=== PATIENT | male | born 1985 | race Caucasian/White ===

== ENCOUNTER 2019-05-24 11:56 | Emergency (ER) | payer OTHER ==
[2019-05-24] MEDS ORDERED: THIAMINE 100 MG/ML 2 ML VIAL IM STA (13:21)
[2019-05-24] MEDS ORDERED: LORazepam 2 MG/ML INJ IV PRN ×2 (13:21)
[2019-05-24 13:34] LABS: Amphetamine Screen,Urine Not Detected (NotDetected); Barbiturate Screen,Urine Not Detected (NotDetected); Benzodiazepines Screen,Urine Not Detected (NotDetected); Cocaine Screen,Urine Not Detected (NotDetected); Methadone Screen, Urine Not Detected (NotDetected); Opiate Screen,Urine Not Detected (NotDetected); Oxycodone Screen, Urine Not Detected (NotDetected); Phencyclidine Screen,Urine Not Detected (NotDetected); Tricyclic Antidepressant,Urine Not Detected (NotDetected); Urn Cannabinoid Scrn Not Detected (NotDetected)
[2019-05-24] MEDS: LORazepam 2 MG/ML INJ IV PRN ×2 (14:56→18:04)
[2019-05-24] MEDS ORDERED: NICOTINE 21MG/24HR PATCH TRANSDERM STA (15:02)
--- NOTE | 2019-05-24 15:47 | ED ---
General Adult HPI <Santiago Mistry - Last Filed: 05/24/19 21:58> - General Source: patient Mode of arrival: ambulatory Limitations: no limitations <Jamil Jeff - Last Filed: 05/25/19 19:53> - General Chief complaint: Recheck/Abnormal Lab/Rx Stated complaint: ETOH withdrawals Time Seen by Provider: 05/24/19 12:14 - History of Present Illness Initial comments: Patient is a 34-year-old male presenting to the emergency department with a chief complaint of alcohol intoxication. Patient reports a history of alcohol is him. States he drinks about 75% of a fifth of liquor daily. States he does it not to get drunk but rather to maintain his baseline. States he tried going to AA meeting twice with no improvement in his drinking habits. Patient states he is looking for a medication that will help him get sober for the first few days and then he should be able to stay sober. He does not have any other complaints at this time. States he is looking for a psychiatric evaluation in the ED. (Jamil Jeff) - Related Data Previous Rx's Medication Instructions Recorded LORazepam [Ativan] 1 mg PO HS 3 Days #3 tab 05/24/19 Allergies Allergy/AdvReac Type Severity Reaction Status Date / Time Penicillins Allergy Rash/Hives Verified 05/24/19 12:03 Review of Systems ROS Other: All systems not noted in ROS Statement are negative. <Santiago Mistry - Last Filed: 05/24/19 21:58> ROS Other: All systems not noted in ROS Statement are negative. <Jamil Jeff - Last Filed: 05/25/19 19:53> ROS Statement: Those systems with pertinent positive or pertinent negative responses have been documented in the HPI. Past Medical History Past Medical History: No Reported History History of Any Multi-Drug Resistant Organisms: None Reported Past Surgical History: No Surgical Hx Reported Past Psychological History: ADD/ADHD, Anxiety Smoking Status: Current every day smoker Past Alcohol Use History: Daily Past Drug Use History: None Reported <Jamil Jeff - Last Filed: 05/25/19 19:53> General Exam Limitations: no limitations General appearance: alert, in no apparent distress Head exam: Present: atraumatic, normocephalic, normal inspection Eye exam: Present: normal appearance Pupils: Present: normal accommodation ENT exam: Present: normal exam, normal oropharynx, mucous membranes moist Neck exam: Present: normal inspection, full ROM Respiratory exam: Present: normal lung sounds bilaterally Cardiovascular Exam: Present: regular rate, normal rhythm, normal heart sounds Extremities exam: Present: normal inspection, full ROM Back exam: Present: normal inspection, full ROM Neurological exam: Present: alert, oriented X3 Psychiatric exam: Present: normal affect, normal mood Skin exam: Present: warm, dry, intact, normal color <Jamil Jeff - Last Filed: 05/25/19 19:53> Course Vital Signs 05/24/19 05/24/19 05/24/19 12:00 16:15 22:10 Temperature 97.8 F 98.4 F Pulse Rate 99 85 85 Respiratory 16 18 18 Rate Blood Pressure 164/102 158/90 137/86 O2 Sat by Pulse 99 99 100 Oximetry Medical Decision Making <Jamil Jeff - Last Filed: 05/25/19 19:53> - Medical Decision Making Patient is a 34-year-old male with history of alcoholism presenting to emergency Department with a chief complaint of alcohol intoxication. Patient is currently intoxicated with a breath alcohol level of 0.230. Patient will be sober at 2100. EPS will evaluate patient at 2100. The patient is admitted he will be discharged with pain medication. Patient is discharged, he will prescribed 3 tablets of Ativan to help him start the alcoholic recovery process. He will also be discharged with multiple resources for alcohol rehab. At this time case will be signed off to Dr. Barahona. (Jamil Jeff) - Lab Data Lab Results 05/24/19 Range/Units Unknown Urine Opiates Screen Not Detected (NotDetected) Ur Oxycodone Screen Not Detected (NotDetected) Urine Methadone Screen Not Detected (NotDetected) Ur Propoxyphene Screen Not Detected (NotDetected) Ur Barbiturates Screen Not Detected (NotDetected) U Tricyclic Antidepress Not Detected (NotDetected) Ur Phencyclidine Scrn Not Detected (NotDetected) Ur Amphetamines Screen Not Detected (NotDetected) U Methamphetamines Scrn Not Detected (NotDetected) U Benzodiazepines Scrn Not Detected (NotDetected) Urine Cocaine Screen Not Detected (NotDetected) U Marijuana (THC) Screen Not Detected (NotDetected) Disposition Is patient prescribed a controlled substance at d/c from ED?: No <Santiago Mistry - Last Filed: 05/24/19 21:58> Is patient prescribed a controlled substance at d/c from ED?: No If prescribed controlled substance>3 days was MAPS reviewed?: Prescribed <3 Days Time of Disposition: 19:52 <Jamil Jeff - Last Filed: 05/25/19 19:53> Clinical Impression: Alcohol intoxication Disposition: HOME SELF-CARE Condition: Fair Instructions (If sedation given, give patient instructions): Alcohol Use Disorder (ED) Prescriptions: LORazepam [Ativan] 1 mg PO HS 3 Days #3 tab Referrals: Nonstaff,Physician [Primary Care Provider] - 1-2 days
[2019-05-24 16:54] VITALS: PULSE 85; RESP 18
[2019-05-24] MEDS ORDERED: THIAMINE 100 MG TAB PO SCH (17:30)
[2019-05-24 22:15] VITALS: BP 137/86; TEMP 98.4
== END 2019-05-24 22:10 | disposition home or self-care (01) ==
LOC: EC 11:56
DX: F10.129 Alcohol abuse with intoxication, unspecified (principal); F17.200 Nicotine dependence, unspecified, uncomplicated; Z88.0 Allergy status to penicillin
CPT/HCPCS: 82075; 80306; 99284; 96374; 96372; S4990; J2060; J3411